=== PATIENT | male | born 1980 | race African-American/Black ===

== ENCOUNTER 2020-09-28 08:58 | Emergency (ER) | payer MEDICAID ==
[~2020-09-28] VITALS: Ht 175.3 cm; Wt 89.8 kg
[2020-09-28 09:03] VITALS: BP 123/98
--- NOTE | 2020-09-28 09:53 | NUR ---
39 YEAR OLD MALE COMPLAINS OF COUGH X 1 WEEK. PT DENIES SOB. PT STATES COUGH PRODUCTIVE WITH GREEN MUCUS, LUNGS CLEAR BL. SPO2 98%, RR 20. PT AOX4, BREATHING EVEN AND UNLABORED, SKIN WARM AND DRY. BED IN LOWEST POSITION, LOCKED, BED RAIL UPX1. PMH - DENIES ALLERGIES - TEGETROL, COGENTIN, AMPHETAMINE
--- NOTE | 2020-09-28 10:42 | NUR ---
INFLUENZA AND AMOL SWABS SENT TO LAB
[2020-09-28] MEDS ORDERED: ROBAC PO (11:29)
[2020-09-28 11:53] VITALS: BP 123/98
--- NOTE | 2020-09-28 11:53 | NUR ---
Patient discharged with v/s stable. Written and verbal after care instructions about cough given and explained. Patient alert, oriented and verbalized understanding of instructions. Ambulatory with steady gait. All questions addressed prior to discharge. ID band removed. Patient advised to follow up with PMD. Rx of codeine phosphate syrup given. Patient educated on indication of medication including possible reaction and side effects. Opportunity to ask questions provided and answered.
== END 2020-09-28 11:53 | disposition home or self-care (01) ==
LOC: MED 08:58
DX: R05 Cough (principal); Z20.822 Contact with and (suspected) exposure to COVID-19; Z88.8 Allergy status to other drugs, medicaments and biological substances; Z88.6 Allergy status to analgesic agent
CPT/HCPCS: 71046; 87804; 99284

== ENCOUNTER 2021-02-18 17:02 | Emergency (ER) | payer MEDICAID ==
[~2021-02-18] VITALS: Ht 175.3 cm; Wt 92.1 kg
[~2021-02-18 17:02] MED LIST: ROBAC PO
[2021-02-18 17:13] VITALS: BP 114/73
[2021-02-18] MEDS ORDERED: ROBAC PO (18:30)
--- NOTE | 2021-02-18 18:31 | NUR ---
AMOL QUEZADA. WALKED BY DOROTA FOX TO LAB
--- NOTE | 2021-02-18 19:11 | NUR ---
PT LEFT FACILITY PRIOR TO DISCHARGE INSTRUCTIONS. PER PT, WILL RETURN LATER FOR INSTRUCTIONS. RX OF CODEINE-GUAIFENESIN PROVIDED. PT DISCHARGED AT THIS TIME.
== END 2021-02-18 19:11 | disposition home or self-care (01) ==
LOC: MED 17:02
DX: R05.9 Cough, unspecified (principal); Z20.822 Contact with and (suspected) exposure to COVID-19
CPT/HCPCS: 99283

== ENCOUNTER 2021-03-21 15:12 | Emergency (ER) | payer MEDICAID ==
[~2021-03-21] VITALS: Ht 175.3 cm; Wt 92.1 kg
[2021-03-21 15:31] VITALS: BP 109/72
--- NOTE | 2021-03-21 16:33 | NUR ---
40 year old male presents to ED with penile pain with itching for 1 day. Pt states he has a lump on groin area. Pt is also c/o digit pain (all digits) on bilateral hands for 5 months with numbness in area. Denies nausea, vomiting, diarrhea. Skin is pink/warm/dry. a&o x4 with even and steady gait. Lungs clear bl, heart rate even and regular. Pt denies any fever, cp, sob, or cough at this time. Patient states pain is 7/10 at this time. Vss. patient positioned for comfort. Hob elevated. Bed down. Ermd made aware of pt. Allergies: amphetamine, hydroxyzine, benztropine, carbamazepine Pmh: denies Med: denies
--- NOTE | 2021-03-21 17:14 | NUR ---
lab at bedside
--- NOTE | 2021-03-21 17:31 | NUR ---
PT RESTING IN BED, VSS, WILL CONTINUE TO MONITOR.
[2021-03-21] MEDS ORDERED: NAPR-1704 PO (17:34)
[2021-03-21] MEDS ORDERED: GUAI-920 PO (17:34)
[2021-03-21 17:57] VITALS: BP 114/76
--- NOTE | 2021-03-21 17:58 | NUR ---
Patient discharged with v/s stable. Written and verbal after care instructions given FOR PREVENTING CARPAL TUNNEL SYNDROME AND CHLAMYDIA TEST and explained. Patient alert, oriented and verbalized understanding of instructions. Ambulatory with steady gait. All questions addressed prior to discharge. ID band removed. Patient advised to follow up with PMD. Rx of GUAIFENSIN AND NAPROXEN given. Patient educated on indication of medication including possible reaction and side effects. Opportunity to ask questions provided and answered.
== END 2021-03-21 17:58 | disposition home or self-care (01) ==
LOC: MED 15:12
DX: N48.89 Other specified disorders of penis (principal); R05.9 Cough, unspecified; G56.03 Carpal tunnel syndrome, bilateral upper limbs; J45.909 Unspecified asthma, uncomplicated; Z79.899 Other long term (current) drug therapy; Z88.8 Allergy status to other drugs, medicaments and biological substances
CPT/HCPCS: 36415; 81002; 86592; 87491; 99283

== ENCOUNTER 2021-07-10 15:22 | Emergency (ER) | payer MEDICAID ==
[~2021-07-10] VITALS: Ht 175.3 cm; Wt 91.6 kg
[~2021-07-10 15:22] MED LIST changes: +GUAI-920 PO; +NAPR-1704 PO
[2021-07-10 15:30] VITALS: BP 123/74
--- NOTE | 2021-07-10 15:45 | NUR ---
YOANA Moreau is evaluating patient at bedside
--- NOTE | 2021-07-10 15:46 | NUR ---
40yo m coming in for STD check because his partner tested positive for trichomoniasis today. pt denies dysuria, penile discharge. denies any other symptoms. denies dysuria, urinary symptoms, pain, n/v/d. bed locked in lowest position, side rails x 1. pmh: none meds: none
--- NOTE | 2021-07-10 15:46 | NUR ---
UA collected, walked to lab and handed to CPT. Nargis
[2021-07-10 16:01] LABS: APPEARANCE,URINE CLEAR (CLEAR); BILIRUBIN,URINE NEGATIVE (NEGATIVE); BLOOD, URINE TRACE-I (NEGATIVE); COLOR,URINE YELLOW (YELLOW); LEUKOCYTE ESTERASE ,URINE NEGATIVE (NEGATIVE); NITRITE, URINE NEGATIVE (NEGATIVE); UGLUCOSE NEGATIVE (NEGATIVE)
[2021-07-10 16:23] LABS: WBC,URINE 0-5 /HPF (0-5)
--- NOTE | 2021-07-10 16:45 | NUR ---
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 SWABS COLLECTED AND WALKED TO LAB
[2021-07-10] MEDS ORDERED: METR-435 PO (16:51)
--- NOTE | 2021-07-10 17:10 | NUR ---
Patient discharged with v/s stable. Written and verbal after care instructions given and explained for Trichomoniasis. Patient alert, oriented and verbalized understanding of instructions. Ambulatory with steady gait. All questions addressed prior to discharge. ID band removed. Patient advised to follow up with PMD. Rx of Flagyl given. Patient educated on indication of medication including possible reaction and side effects. Opportunity to ask questions provided and answered.
== END 2021-07-10 17:10 | disposition home or self-care (01) ==
LOC: MED 15:22
DX: J45.909 Unspecified asthma, uncomplicated (principal); Z20.2 Contact with and (suspected) exposure to infections with a predominantly sexual mode of transmission; Z79.899 Other long term (current) drug therapy; Z88.8 Allergy status to other drugs, medicaments and biological substances; Z88.1 Allergy status to other antibiotic agents
CPT/HCPCS: 36415; 81001; 87210; 87491; 99283

== ENCOUNTER 2021-09-10 06:29 | Emergency (ER) | payer MEDICAID ==
[~2021-09-10] VITALS: Ht 175.3 cm; Wt 93.4 kg
[~2021-09-10 06:29] MED LIST changes: +METR-435 PO
[2021-09-10 06:42] VITALS: BP 109/65
--- NOTE | 2021-09-10 07:04 | NUR ---
PT AMBULATED TO BED 12
--- NOTE | 2021-09-10 07:10 | NUR ---
40 Y/O MALE BIBS FROM HOME, C/O DIARRHEA X3 DAYS W/ABDOMINAL CRAMPING 11/25. PT DENIES COUGH, FEVER, CP, SOB OR N/V. NO BLOOD IN DIARRHEA. A/OX4, GCS-15; SKIN IS NORMAL/WARM/DRY; UNLABORED BREATHING; AMBULATORY. PT IS SEATED IN BED WITH HOB RAISED, BED IN LOWEST SETTING, AND RAIL UP X1. DENIES HX OR MEDS
--- NOTE | 2021-09-10 07:35 | NUR ---
REPORT GIVEN TO CAITLYN ARAYA.
[2021-09-10] MEDS ORDERED: ONDA-188 PO ×2 (07:48→08:03)
[2021-09-10] MEDS ORDERED: LOPE-289 PO (07:48)
--- NOTE | 2021-09-10 08:02 | NUR ---
Patient discharged with v/s stable. Written and verbal after care instructions ABOUT DIARRHEA given and explained. Patient alert, oriented and verbalized understanding of instructions. Ambulatory with steady gait. All questions addressed prior to discharge. ID band removed. Patient advised to follow up with PMD. Rx of LOPERAMIDE, AND ZOFRAN ODT given. Patient educated on indication of medication including possible reaction and side effects. Opportunity to ask questions provided and answered.
[2021-09-10] MEDS ORDERED: LOPE1TAB14 PO (08:03)
== END 2021-09-10 08:02 | disposition home or self-care (01) ==
LOC: MED 06:29
DX: K52.9 Noninfective gastroenteritis and colitis, unspecified (principal); R11.10 Vomiting, unspecified; J45.909 Unspecified asthma, uncomplicated
CPT/HCPCS: 99283

== ENCOUNTER 2021-09-19 04:32 | Emergency (ER) | payer MEDICAID ==
[~2021-09-19] VITALS: Ht 175.3 cm; Wt 90.7 kg
[~2021-09-19 04:32] MED LIST changes: +LOPE1TAB14 PO; +ONDA-188 PO
[2021-09-19 04:36] VITALS: BP 103/69
--- NOTE | 2021-09-19 04:40 | NUR ---
PT TAKEN TO ER BED 09
[2021-09-19] MEDS ORDERED: MORPHINE SULFATE 2 MG/ML SYR IVP ONE (05:05)
[2021-09-19] MEDS ORDERED: ONDANSETRON 4 MG/2 ML VIAL IVP ONE (05:05)
[2021-09-19] MEDS ORDERED: NACL 0.9% 1,000 ML IV SCH (05:05)
--- NOTE | 2021-09-19 05:07 | NUR ---
PT AMBULATED TO FOR URINE COLLECTION
[2021-09-19 05:18] LABS: APPEARANCE,URINE CLEAR (CLEAR); BILIRUBIN,URINE NEGATIVE (NEGATIVE); BLOOD, URINE NEGATIVE (NEGATIVE); COLOR,URINE YELLOW (YELLOW); LEUKOCYTE ESTERASE ,URINE NEGATIVE (NEGATIVE); NITRITE, URINE NEGATIVE (NEGATIVE); PH,URINE 7.5 (5.0-9.0); UGLUCOSE NEGATIVE (NEGATIVE)
--- NOTE | 2021-09-19 05:29 | NUR ---
LABS AND URINE COLLECTED AND TAKEN TO LAB
--- NOTE | 2021-09-19 05:30 | NUR ---
40 YO M BIB SELF WITH C/O 7/10 Epigastric pain and headache x 1 day, Patient reported, had epigastric pain, bloating, no N/V/D. Last BM ~ one hour ETA. pt reports increased belching. hx:adhd allergy:amphetamine, benztropine and carbamapine
[2021-09-19] MEDS ORDERED: PANTOPRAZOLE 40 MG INJ VIAL IVP ONE (05:35)
[2021-09-19] MEDS ORDERED: KETOROLAC 30 MG/ML VIAL IVP ONE (05:35)
--- NOTE | 2021-09-19 05:40 | NUR ---
US AT BEDSIDE.
[2021-09-19 06:06] LABS: ANION GAP 9.4 (8-16); CARBON DIOXIDE 28.6 mmol/L (21-32); CREATININE 0.9 mg/dL (0.6-1.3); TOTAL BILIRUBIN 0.4 mg/dL (0.0-1.0)
[2021-09-19 06:17] LABS: BASOPHILS # (AUTO) 0.1 K/uL (0.00-0.22); BASOPHILS % (AUTO) 0.7 % (0.0-2.0); EOSINOPHILS # (AUTO) 0.1 K/uL (0-0.4); EOSINOPHILS % (AUTO) 1.3 % (0.0-4.0); HEMATOCRIT 43.5 % (36-52); HEMOGLOBIN 14.7 g/dL (12.0-18.0); LYMPHOCYTES # (AUTO) 1.8 K/uL (2.0-11.5); LYMPHOCYTES % (AUTO) 20.7 % (20.5-51.1); MEAN CORPUSCULAR HEMOGLOBIN 30 pg (27-31); MEAN CORPUSCULAR HGB CONC 34 g/dL (33-37); MEAN CORPUSCULAR VOLUME 89.7 fL (80-94); MONOCYTES # (AUTO) 0.7 K/uL (0.8-1.0); NEUTROPHILS % (AUTO) 69.3 % (42.2-75.2); PLATELET COUNT (AUTO) 195 K/uL (140-450); RED BLOOD CELL COUNT(AUTO) 4.85 MIL/uL (4.20-6.10); RED CELL DISTRIBUTION WIDTH 12.8 % (11.6-13.7); WHITE BLOOD COUNT (AUTO) 8.6 K/uL (4.8-10.8)
[2021-09-19 06:19] LABS: ALBUMIN 3.2 g/dL (3.4-5.0)
--- NOTE | 2021-09-19 06:32 | NUR ---
pt appears to be resting. equal rise and fall of chest wall. all needs met at this time.
--- NOTE | 2021-09-19 07:17 | NUR ---
Pt report given to josselyn katz. Transfer of care at this time.
--- NOTE | 2021-09-19 07:24 | NUR ---
RECEIVED REPORT FROM ISAAC BRADY, RECEIVED PATIENT ASLEEP IN BED, NSS INFUSING WELL IN THE LEFT AC 20G, DENIED ANY PAIN AT THIS TIME.
--- NOTE | 2021-09-19 08:14 | NUR ---
PT REQUESTING IV TO BE TAKEN OUT STATING IT IS UNCOMFORTABLE. ONLY 500ML OF NS INFUSED. PT STATED "THATS ENOUGH, TAKE IT OUT". DR MENDIOLA MADE AWARE.
--- NOTE | 2021-09-19 08:15 | NUR ---
IV removed, catheter intact and site benign. Applied folded 4x4 gauze and tape to stop bleeding.
[2021-09-19] MEDS ORDERED: CALC-870 PO (08:32)
[2021-09-19] MEDS ORDERED: ONDA-188 PO (08:32)
[2021-09-19] MEDS ORDERED: PANT40EC PO (08:32)
[2021-09-19 08:39] VITALS: BP 115/70
--- NOTE | 2021-09-19 08:40 | NUR ---
Patient discharged with v/s stable. Written and verbal after care instructions given and explained. Patient alert, oriented and verbalized understanding of instructions. Ambulatory with steady gait. All questions addressed prior to discharge. ID band removed. Patient advised to follow up with PMD. Rx of ZOFRAN ODT, PANTOPRAZOLE, AND MAALOX ADVANCED TAB given. Patient educated on indication of medication including possible reaction and side effects. Opportunity to ask questions provided and answered.
== END 2021-09-19 08:40 | disposition home or self-care (01) ==
LOC: MED 04:32
DX: K29.70 Gastritis, unspecified, without bleeding (principal); J45.909 Unspecified asthma, uncomplicated; Z79.899 Other long term (current) drug therapy; Z79.2 Long term (current) use of antibiotics; Z79.1 Long term (current) use of non-steroidal anti-inflammatories (NSAID); Z88.8 Allergy status to other drugs, medicaments and biological substances
CPT/HCPCS: 36415; 74176; 76705; 80053; 81003; 83690; 85025; 96361; 96374; 96375; 99284; C9113; J1885; J2405; J7030; Q0092; J2270

== ENCOUNTER 2022-04-01 10:05 | Emergency (ER) | payer MEDICAID ==
[~2022-04-01] VITALS: Ht 175.3 cm; Wt 95.3 kg
[~2022-04-01 10:05] MED LIST changes: +CALC-870 PO; +PANT40EC PO
[2022-04-01 10:30] VITALS: BP 117/67
--- NOTE | 2022-04-01 10:32 | NUR ---
PT SWABBED FOR COVID AND FLU. PT AMBULATED TO [facility]
[2022-04-01] MEDS ORDERED: ROB PO (11:24)
[2022-04-01] MEDS ORDERED: ALBU0.0912 INH (11:24)
--- NOTE | 2022-04-01 11:35 | NUR ---
Patient discharged with v/s stable. Written and verbal after care instructions ABOUT COUGH given and explained. Patient alert, oriented and verbalized understanding of instructions. Ambulatory with steady gait. All questions addressed prior to discharge. ID band removed. Patient advised to follow up with PMD. Rx of ALBUTEROL AND ROBITUSSIN given. Patient educated on indication of medication including possible reaction and side effects. Opportunity to ask questions provided and answered.
== END 2022-04-01 11:35 | disposition home or self-care (01) ==
LOC: MED 10:05
DX: J06.9 Acute upper respiratory infection, unspecified (principal); Z20.822 Contact with and (suspected) exposure to COVID-19; J40 Bronchitis, not specified as acute or chronic; J45.909 Unspecified asthma, uncomplicated; Z79.899 Other long term (current) drug therapy; Z88.8 Allergy status to other drugs, medicaments and biological substances
CPT/HCPCS: 99283

== ENCOUNTER 2022-08-09 10:17 | Emergency (ER) | payer MEDICAID ==
[~2022-08-09] VITALS: Ht 175.3 cm; Wt 90.7 kg
[~2022-08-09 10:17] MED LIST changes: +ALBU0.0912 INH; +ROB PO
[2022-08-09 10:26] VITALS: BP 117/64
--- NOTE | 2022-08-09 10:30 | NUR ---
SORE THROAT ONSET TUESDAY, ALSO ENDORSING FEVER AND NAUSEA. PSH: RECENT EGD ON TUESDAY
--- NOTE | 2022-08-09 10:52 | NUR ---
AMB. TO CHAIR B W NO DIFFICULTY
--- NOTE | 2022-08-09 11:12 | NUR ---
FLU and AMOL swabs obtained, walked to lab. Handed to CPT.
--- NOTE | 2022-08-09 11:51 | NUR ---
Patient discharged with v/s stable. Written and verbal after care instructions VIRAL ILLNESS given and explained. Patient verbalized understanding. Ambulatory with steady gait. All questions addressed prior to discharge. Advised to follow up with PMD.
== END 2022-08-09 11:50 | disposition home or self-care (01) ==
LOC: MED 10:17
DX: B34.9 Viral infection, unspecified (principal); Z20.822 Contact with and (suspected) exposure to COVID-19; J45.909 Unspecified asthma, uncomplicated; Z88.8 Allergy status to other drugs, medicaments and biological substances; Z79.899 Other long term (current) drug therapy
CPT/HCPCS: 99283